=== PATIENT | female | born 1955 | race Caucasian/White ===

== ENCOUNTER 2022-07-23 10:45 | Outpatient (CLI) | payer MEDICARE, SELFPAY ==
[2022-07-23 11:23] LABS: Hematocrit 48.9 % (37.0-47.0); Hemoglobin 15.8 g/dL (12.0-15.0); Mean Corpuscular HGB Conc 32.3 g/dl (32-36); Mean Corpuscular Hemoglobin 28.5 pg (26-34); Mean Corpuscular Volume 88.1 fl (80-100); Mean Platelet Volume 10.5 fl (7.4-10.4); Platelet Count Result 261 k/mm3 (150-375); Red Blood Count 5.55 M/mm3 (4.2-5.4); Red Cell Distribution Width 13.4 % (11.5-14.5)
[2022-07-23 11:34] LABS: Alanine Aminotransferase 22 U/L (6-35); Albumin Level 4.7 g/dL (3.5-5.1); Alkaline Phosphatase 50 U/L (38-126); Anion Gap 7 mmol/L (8-16); Aspartate Amino Transferase 27 U/L (14-36); Blood Urea Nitrogen 23 mg/dL (7-17); Calcium 9.2 mg/dL (8.4-10.2); Carbon Dioxide 29 mmol/L (22-30); Chloride 103 mmol/L (98-107); Cholesterol 119 mg/dL (0-200); Estimated Glomerular Filt Rate > 60; Glucose 97 mg/dL (65-110); HDL Direct 54 mg/dL; Potassium 4.6 mmol/L (3.4-5.0); Sodium 139 mmol/L (137-145); Triglycerides 79 mg/dL (<150)
[2022-07-23 11:35] LABS: Bacteria Urine None Seen /hpf; Non Pathogenic Casts 0-2; RBC Urine 0-2 /hpf (0-2); Squamous Epithelial Cell Urine Occasional /hpf (Few); WBC Urine 0-5 /hpf (0-3)
[2022-07-23 11:51] LABS: Appearance Urine Clear (Clear); Bilirubin Urine Negative (Negative); Blood Urine Negative (Negative); Color Urine Yellow (Yellow); Glucose Urine UA Negative (Negative); Ketones Urine Negative (Negative); Leukocyte Esterase Ur Negative LEU/UL (NEGATIVE); Nitrate Urine Negative (Negative); Protein Urine Negative (Negative); Specific Grav Ur 1.021 (1.001-1.035); Urobilinogen Urine 0.2 mg/dL (<2.0)
[2022-07-23 11:58] LABS: Add Urine Microscopic? NO
[2022-07-23 12:14] LABS: Thyroid Stimulating Hormone 0.765 uIU/mL (0.465-4.680)
[2022-07-23 13:35] LABS: LDL Cholesterol Direct 50 mg/dL
== END 2022-07-23 10:46 | disposition home or self-care (01) ==
PROVIDERS: PCP Family Medicine; Visit Provider Family Medicine
DX: E78.5 Hyperlipidemia, unspecified (principal); I10 Essential (primary) hypertension; I25.10 Atherosclerotic heart disease of native coronary artery without angina pectoris; R73.01 Impaired fasting glucose
CPT/HCPCS: 36415; 80053; 80061; 81003; 84443; 85027

== ENCOUNTER 2022-08-28 12:15 | Outpatient (CLI) | payer MEDICARE, SELFPAY ==
[2022-08-28 13:16] LABS: Basophils Absolute Auto 0.1 K/mm3 (0.0-0.1); Basophils Percent Auto 1.1 % (0.2-1.2); Eosinophils Absolute Auto 0.2 K/mm3 (0-0.3); Eosinophils Percent Auto 3.8 % (0-4.4); Hematocrit 46.8 % (37.0-47.0); Hemoglobin 14.8 g/dL (12.0-15.0); Immature Granulocyte Absolute 0.01 K/mm3 (0.00-0.031); Immature Granulocyte Percent A 0.2 % (0-0.5); Lymphocytes Absolute Auto 1.42 K/mm3 (0.9-3.2); Lymphocytes Percent Auto 22.3 % (18.3-44.2); Mean Corpuscular HGB Conc 31.6 g/dl (32-36); Mean Corpuscular Hemoglobin 28.2 pg (26-34); Mean Corpuscular Volume 89.3 fl (80-100); Mean Platelet Volume 10.8 fl (7.4-10.4); Monocytes Absolute Auto 0.5 K/mm3 (0.1-0.6); Monocytes Percent Auto 7.2 % (2.6-8.5); Neutrophils Absolute Auto 4.2 K/mm3 (1.3-6.7); Neutrophils Percent Auto 65.4 % (45.5-73.1); Platelet Count Result 217 k/mm3 (150-375); Red Blood Count 5.24 M/mm3 (4.2-5.4); Red Cell Distribution Width 13.4 % (11.5-14.5); White Blood Count 6.4 K/mm3 (4.5-10.0)
== END 2022-08-28 12:16 | disposition home or self-care (01) ==
LOC: ANHLAB 12:17
PROVIDERS: PCP Family Medicine; Visit Provider Family Medicine
DX: R71.8 Other abnormality of red blood cells (principal)
CPT/HCPCS: 36415; 85025

== ENCOUNTER 2023-07-29 10:21 | Outpatient (CLI) | payer MEDICARE, SELFPAY ==
[2023-07-29 13:19] LABS: Hematocrit 49.4 % (37.0-47.0); Hemoglobin 15.8 g/dL (12.0-15.0); Mean Corpuscular Hemoglobin 28.8 pg (26-34); Mean Platelet Volume 11.2 fl (7.4-10.4); Platelet Count Result 231 k/mm3 (150-375); Red Blood Count 5.49 M/mm3 (4.2-5.4); Red Cell Distribution Width 13.9 % (11.5-14.5); White Blood Count 5.8 K/mm3 (4.5-10.0)
[2023-07-29 13:24] LABS: Appearance Urine Clear (Clear); Bilirubin Urine Negative (Negative); Blood Urine Negative (Negative); Color Urine Yellow (Yellow); Glucose Urine UA Negative (Negative); Ketones Urine Negative (Negative); Leukocyte Esterase Ur Negative LEU/UL (Negative); Nitrate Urine Negative (Negative); Protein Urine Negative (Negative); Specific Grav Ur 1.024 (1.001-1.035); Urobilinogen Urine 0.2 mg/dL (<2.0); pH Urine 5.5 (5.0-9.0)
[2023-07-29 13:33] LABS: Add Urine Microscopic? NO
[2023-07-29 13:42] LABS: LDL Cholesterol Direct 62 mg/dL
[2023-07-29 14:11] LABS: Alanine Aminotransferase 17 U/L (6-35); Albumin Level 4.5 g/dL (3.5-5.1); Alkaline Phosphatase 63 U/L (38-126); Anion Gap 7 mmol/L (4-12); Aspartate Amino Transferase 24 U/L (14-36); Blood Urea Nitrogen 18 mg/dL (7-17); Calcium 8.9 mg/dL (8.4-10.2); Carbon Dioxide 27 mmol/L (22-30); Chloride 105 mmol/L (98-107); Cholesterol 119 mg/dL (0-200); Estimated Glomerular Filt Rate > 60; Glucose 87 mg/dL (65-110); HDL Direct 49 mg/dL; Potassium 4.5 mmol/L (3.4-5.0); Sodium 139 mmol/L (137-145); Triglycerides 80 mg/dL (<150)
== END 2023-07-29 10:22 | disposition home or self-care (01) ==
PROVIDERS: PCP Family Medicine; Referring Provider Hospitalist; Visit Provider Family Medicine
DX: I11.9 Hypertensive heart disease without heart failure (principal); E78.5 Hyperlipidemia, unspecified; I25.10 Atherosclerotic heart disease of native coronary artery without angina pectoris; Z00.00 Encounter for general adult medical examination without abnormal findings; Z68.28 Body mass index [BMI] 28.0-28.9, adult
CPT/HCPCS: 36415; 80053; 80061; 81003; 84443; 85027

== ENCOUNTER 2023-12-10 15:33 | Outpatient (NON) | payer MEDICARE, SELFPAY | END 2023-12-10 15:34 | disposition home or self-care (01) | LOC: ANHLAB 15:37 | PROVIDERS: PCP Family Medicine; Visit Provider Family Medicine | DX: B89 Unspecified parasitic disease (principal) | CPT/HCPCS: 88300; 88304 ==

== ENCOUNTER 2023-12-11 10:51 | Outpatient (CLI) | payer MEDICARE, SELFPAY ==
[2023-12-11 11:07] LABS: Basophils Absolute Auto 0.1 K/mm3 (0.0-0.1); Basophils Percent Auto 0.7 % (0.2-1.2); Eosinophils Absolute Auto 0.4 K/mm3 (0-0.3); Eosinophils Percent Auto 5.4 % (0-4.4); Hematocrit 44.8 % (37.0-47.0); Hemoglobin 14.5 g/dL (12.0-15.0); Immature Granulocyte Absolute 0.03 K/mm3 (0.00-0.031); Immature Granulocyte Percent A 0.4 % (0-0.5); Lymphocytes Absolute Auto 1.38 K/mm3 (0.9-3.2); Lymphocytes Percent Auto 20.1 % (18.3-44.2); Mean Corpuscular HGB Conc 32.4 g/dl (32-36); Mean Corpuscular Hemoglobin 28.9 pg (26-34); Mean Corpuscular Volume 89.4 fl (80-100); Mean Platelet Volume 10.7 fl (7.4-10.4); Monocytes Absolute Auto 0.5 K/mm3 (0.1-0.6); Monocytes Percent Auto 7.4 % (2.6-8.5); Neutrophils Absolute Auto 4.5 K/mm3 (1.3-6.7); Platelet Count Result 239 k/mm3 (150-375); Red Blood Count 5.01 M/mm3 (4.2-5.4); Red Cell Distribution Width 14.3 % (11.5-14.5); White Blood Count 6.9 K/mm3 (4.5-10.0)
[2023-12-11 11:30] LABS: Add Urine Microscopic? NO; Appearance Urine Clear (Clear); Bilirubin Urine Negative (Negative); Blood Urine Negative (Negative); Color Urine Yellow (Yellow); Glucose Urine UA Negative (Negative); Ketones Urine Negative (Negative); Leukocyte Esterase Ur Negative LEU/UL (Negative); Nitrate Urine Negative (Negative); Protein Urine Negative (Negative); Specific Grav Ur 1.006 (1.001-1.035); Urobilinogen Urine 0.2 mg/dL (<2.0)
== END 2023-12-11 10:52 | disposition home or self-care (01) ==
PROVIDERS: PCP Family Medicine; Visit Provider Student in an Organized Health Care Education/Training Program
DX: R82.90 Unspecified abnormal findings in urine (principal)
CPT/HCPCS: 36415; 81003; 85025

== ENCOUNTER 2024-01-26 08:40 | Outpatient (CLI) | payer MEDICARE, SELFPAY ==
--- NOTE | ~2024-01-26 | DEXA_ITS ---
Bone Density Report Name: TRACEY GATICA Age: 69 Sex: Female Ethnicity: White Date of : 1955 Indication: postmenopausal; screening for osteoporosis; history of glucocorticoids; asthma or emphysema; hysterectomy; rheumatoid arthritis; Referring Provider: TEJAL FORD Study: Bone densitometry was performed. Exam Date: January 26, 2024 Accession number: [id number] Bone Density: Region BMD T-score Z-score Classification AP Spine(L1-L4) 1.077 0.3 2.4 Normal Femoral Neck (Left) 0.716 -1.2 0.6 Osteopenia Total Hip (Left) 1.095 1.3 2.8 Normal Femoral Neck (Right) 0.752 -0.9 0.9 Normal Total Hip (Right) 1.121 1.5 3.0 Normal Total Hip Mean 1.108 1.4 2.9 Normal World Health Organization criteria for BMD impression classify patients as: Normal (T-score at or above -1.0), Osteopenia (T-score between -1.0 and -2.5), or Osteoporosis (T-score at or below -2.5). 10-year Fracture Risk(1): Major Osteoporotic Fracture 18% Hip Fracture 2.6% Reported Risk Factors: [place] (), Neck BMD=0.716, BMI=30.5, glucocorticoids, rheumatoid arthritis (1) FRAX(R) Version 3.08. Fracture probability calculated for an untreated patient. Fracture probability may be lower if the patient has received treatment. Clinical Information Provided by Patient: Has taken Glucocorticoids Has rheumatoid arthritis Has the following medical conditions: Asthma or Emphysema, Hysterectomy Patient maximum height was 63 Menopause Age: 39 No regular weight bearing exercise Does not regularly consume dairy products Onset of menses at age 11 Number of children 1 Missed period for more than 6 months in a row Impression: The patient has low bone mass, based on the Left Femoral Neck T-score. The patient has an estimated ten-year risk of hip fracture of 2.6% and an estimated ten-year risk of major fracture of 18%, based on the WHO FRAX algorithm. The patient has risk factors, including: history of glucocorticoid therapy. Discussion: BONE DENSITY IS LOW AT ONE OR MORE SKELETAL SITES. This patient's lowest T-score is low at one or more skeletal sites. It meets the World Health Organization's (WHO) criteria for ?low bone mass? (T-score between -1.0 and -2.5). The patient's 10-year risk of fracture as calculated by FRAX is less than the threshold where pharmacological therapy is recommended by the National Osteoporosis Foundation (NOF). However, all treatment decisions require clinical judgment and consideration of individual patient factors, including patient preferences, comorbidities, previous drug use, risk factors not captured in the FRAX model (e.g., frailty, falls, vitamin D deficiency, increased bone turnover, interval significant decline in bone density) and possible under or overestimation of fracture risk by FRAX. The patient should follow a healthful lifestyle (good nutrition with adequate calcium and vitamin D, and appropriate weight-bearing exercise). Follow-Up: Consider repeating this study in 2 to 3 years to reassess this patient's status, or sooner if there is some new clinical indication. Reported by: AIDA on 01/26/2024 9:24:00 AM. Reviewed, dictated and finalized at location ANini SAUER
== END 2024-01-26 08:41 | disposition home or self-care (01) ==
PROVIDERS: PCP Family Medicine; Visit Provider Family Medicine
DX: Z78.0 Asymptomatic menopausal state (principal); M85.852 Other specified disorders of bone density and structure, left thigh
CPT/HCPCS: 77080

== ENCOUNTER 2024-04-05 09:56 | Outpatient (CLI) | payer MEDICARE, SELFPAY ==
[2024-04-05 12:35] LABS: Alanine Aminotransferase 16 U/L (6-35); Alkaline Phosphatase 50 U/L (38-126); Anion Gap 9 mmol/L (4-12); Aspartate Amino Transferase 26 U/L (14-36); Bilirubin,Total 0.6 mg/dL (0.2-1.3); Blood Urea Nitrogen 30 mg/dL (7-17); Calcium 8.9 mg/dL (8.4-10.2); Carbon Dioxide 28 mmol/L (22-30); Chloride 102 mmol/L (98-107); Estimated Glomerular Filt Rate > 60; Glucose 97 mg/dL (65-110); Potassium 4.6 mmol/L (3.4-5.0); Sodium 139 mmol/L (137-145)
--- OUTSIDE RECORDS SUMMARY | 2024-04-07 17:09 | XMS_ITS | Encounter Summary ---
Author Organization [facility] Address [address] [place] [address]. [place] [address] [place] [address] Care Team Providers Care Nuclear Physicist Name Role Phone Mulu Neil MD Primary Care Provider [phone] Tara Chin MD Unavailable Darren Richardson MD Unavailable [phone] Morris Barajas MD Primary Care Provider [phone] Encounter Details Date Type Department Care Team (Late Contact Info) Description 05/30/2017 Abstract [facility] [address] [place] [address] , Dallin Bean MD Social History Tobacco Use Types Packs/Day Years Used Date Smoking Tobacco: Never Smokeless Tobacco: Never Alcohol Use Standard Drinks/Week Comments No 0 (1 standard drink = 0.6 oz pur e alcohol) Comments Unknown Sex and Gender Information Value Date Recorded Sex Assigned at Female 03/29/2024 10:17 AM JAVA XML DEVELOPER Legal Sex Female 3:39 AM CDT Gender Identity Not on file Sexual Orientation Not on file Occupation Industry Job Start Date Job End Date Retired Not on file Not on file Not on file documented as of this encounter Plan of Treatment Upcoming Encounters Date Type Department Care Team (Late Contact Info) Description 09/27/2024 10:30 AM CDT Office Visit [facility], [facility] [address] [place], [place] [id number] Darren Richardson MD [facility]. [facility] [address] [place] [address] documented as of this encounter Goals Goal Patient Goal Type Associated Problems Recent Progress Patient-Stated? Author Reduce calorie intake to 2000 calories per day Diet No Piero Chen RN documented as of this encounter Visit Diagnoses Not on filedocumented in this encounter Care Teams Nuclear Physicist Relationship Specialty Start Date End Date Mulu Neil MD [address] [place], [place] [address] PCP - General FAMILY PRACTICE 11/07/15 03/15/18 Morris Barajas MD [address] [place] [address] PCP - General FAMILY PRACTICE 03/16/18 Tara Chin MD [address] [place] [address] [place] Braille Typist CARDIOVASCULAR DISEASE 07/08/17 03/15/18 Darren Richardson MD [facility]. [address] [address] [place] Braille Typist CARDIOVASCULAR DISEASE 11/12/17 documented as of this encounter
--- OUTSIDE RECORDS SUMMARY | 2024-04-07 17:09 | XMS_ITS | Encounter Summary ---
Author Organization [facility] Address [address] [place] [address]. [place] [address] [place] [address] Care Team Providers Care Production Superintendent Hydro Name Role Phone Mulu Neil MD Primary Care Provider [phone] Tara Chin MD Unavailable Darren Richardson MD Unavailable [phone] Morris Barajas MD Primary Care Provider [phone] Encounter Details Date Type Department Care Team (Late st Contact Info) Description 12/03/2017 Abstract [facility] at [address] [address] Harvey Rawls MA Social History Tobacco Use Types Packs/Day Years Used Date Smoking Tobacco: Never Smokeless Tobacco: Never Alcohol Use Standard Drinks/Week Comments No 0 (1 standard drink = 0.6 oz pur e alcohol) Comments Unknown Sex and Gender Information Value Date Recorded Sex Assigned at Female 03/29/2024 10:17 AM FINAL ASSEMBLY AND PACKING SUPERVISOR Legal Sex Female 3:39 AM CDT Gender Identity Not on file Sexual Orientation Not on file Occupation Industry Job Start Date Job End Date Not on file Not on file Not on file Not on file documented as of this encounter Progress Notes * DARIN Villarreal - 12/03/2017 8:29 AM CDT PG pt send letter continue current medications documented in this encounter Plan of Treatment Upcoming Encounters Date Type Department Care Team (Late st Contact Info) Description 09/27/2024 10:30 AM CDT Office Visit [facility], [place] [address] [place] [address] Darren Richardson MD [facility]. [facility] [address] [place], [place] [id number] documented as of this encounter Goals Goal Patient Goal Type Associated Problems Recent Progress Patient-Stated? Author Reduce calorie intake to 2000 calories per day Diet No Piero Chen RN documented as of this encounter Procedures Procedure Name Priority Date/Time Associated Diagnosis Comments COMPREHENSIVE METABOLIC PANEL Routine 07/29/2023 LIPID PANEL Routine 07/29/2023 CBC, MANUAL DIFF Routine 07/29/2023 THYROID STIM HORMONE TSH Routine 07/29/2023 HEPATIC FUNCTION PANEL Routine 12/01/2017 documented in this encounter Results * COMPREHENSIVE METABOLIC PANEL (07/29/2023) SODIUM S/P/B 139 GLUCOSE 87 mg/dL AST 24 BUN 18 CREATININE S/P/B 0.70 0.5 - 1.0 CALCIUM S/P/B 8.9 POTASSIUM S/P/B 4.5 CHLORIDE S/P/B 105 ALT 17 GFR ESTIMATE >60 us Default History Genericprovider LABORATORY Edited Result - Final * LIPID PANEL (07/29/2023) CHOLESTEROL 119 TRIGLYCERIDES 80 HDL 49 DIRECT LDL 62 us Default History Genericprovider LABORATORY Edited Result - Final * CBC, MANUAL DIFF (07/29/2023) WBC 5.8 HGB 15.8 HCT 49.4 PLT 231 us Default History Genericprovider LABORATORY Edited Result - Final * THYROID STIM HORMONE TSH (07/29/2023) TSH 1.130 us Default History Genericprovider LABORATORY Edited Result - Final * HEPATIC FUNCTION PANEL (12/01/2017) ALBUMIN S/P/B 4.4 3.5 - 5.0 ALKALINE PHOSPHATASE S/P/B 73 ALT 11 AST 15 BILIRUBIN DIRECT S/P/B <0.2 BILIRUBIN TOTAL S/P/B 0.4 TOTAL PROTEIN S/P/B 7.1 12/01/2017 us Doc [facility] Abstract LABORATORY Final Result documented in this encounter Visit Diagnoses Not on filedocumented in this encounter Care Teams Production Superintendent Hydro Relationship Specialty Start Date End Date Mulu Neil MD [address] [place] [address] PCP - General FAMILY PRACTICE 11/07/15 03/15/18 Morris Barajas MD [address] [place] [address] PCP - General FAMILY PRACTICE 03/16/18 Tara Chin MD [address] [place] [address] [place] Smoke Jumper Supervisor CARDIOVASCULAR DISEASE 07/08/17 03/15/18 [facility] [address] [address] [place] Smoke Jumper Supervisor CARDIOVASCULAR DISEASE 11/12/17 documented as of this encounter
--- OUTSIDE RECORDS SUMMARY | 2024-04-07 17:09 | XMS_ITS | Encounter Summary ---
Author Organization [facility] Address [address] [place] [address]. [place] [address] [place] [address] Care Team Providers Care Hot Strip Finisher Name Role Phone Mulu Neil MD Primary Care Provider [phone] Tara Chin MD Unavailable Darren Richardson MD Unavailable [phone] Morris Barajas MD Primary Care Provider [phone] Encounter Details Date Type Department Care Team (Late Contact Info) Description 02/26/2015 Abstract [facility] THREE [facility] [address] [place] [address] Kirill Oquendo MD Social History Tobacco Use Types Packs/Day Years Used Date Smoking Tobacco: Never Alcohol Use Standard Drinks/Week Comments No 0 (1 standard drink = 0.6 oz pur e alcohol) Comments Unknown Sex and Gender Information Value Date Recorded Sex Assigned at Female 03/29/2024 10:17 AM DESTINATION COORDINATOR Legal Sex Female 3:39 AM CDT Gender Identity Not on file Sexual Orientation Not on file Occupation Industry Job Start Date Job End Date Retired Not on file Not on file Not on file documented as of this encounter Plan of Treatment Upcoming Encounters Date Type Department Care Team (Late Contact Info) Description 09/27/2024 10:30 AM CDT Office Visit [facility], [facility] [address] [place], [place] [address] Darren Richardson MD [facility]. [facility] [address] [place] [address] documented as of this encounter Visit Diagnoses Not on filedocumented in this encounter Care Teams Hot Strip Finisher Relationship Specialty Start Date End Date Mulu Neil MD [address] [place] [address] PCP - General FAMILY PRACTICE 11/07/15 03/15/18 Morris Barajas MD [address] [place] [address] PCP - General FAMILY PRACTICE 03/16/18 Tara Chin MD [address] [place] [address] [place] Projects Manager CARDIOVASCULAR DISEASE 07/08/17 03/15/18 Darren Richardson MD [address] [facility] [address] [place] [address] Mark Projects Manager CARDIOVASCULAR DISEASE 11/12/17 documented as of this encounter
--- OUTSIDE RECORDS SUMMARY | 2024-04-07 17:09 | XMS_ITS | Clinical Summary ---
Author Organization [facility] Address [address] [place] [address]. [place] [address] [place] [address] Care Team Providers Care Sap Trainer Name Role Phone Darren Richardson MD Unavailable Morris Barajas MD Primary Care Provider [phone] Allergies Active Allergy Reactions Criticality Noted Date Comments Amiodarone Shortness of Breath High 11/06/2015 Cephalexin GI Upset 11/06/2015 Tramadol Nausea and Vomiting 11/06/2015 Medications aspirin 81 MG chewable tablet Chew 1 tablet (81 mg total) by mouth daily. 6 Active estradiol (ESTRACE) 0.1 MG/GM vaginal cream Place 1 g vaginally daily. 3 Active atorvastatin (LIPITOR) 10 MG tablet Take 1 tablet (10 mg total) by mouth daily. 90 tablet 1 5 Active carvedilol (COREG) 6.25 MG tabletIndicatio ns:Coronary artery disease involving [place] coronary artery of [place] heart without angina pectoris,[place] ry artery disease involving [place] coronary artery of [place] heart with angina pectoris (CMS/HCC),Essen tial (primary) hypertension,SO B (shortness of breath) Take 1 tablet (6.25 mg total) by mouth 2 (two) times daily. 180 tablet 1 5 Active clopidogrel (PLAVIX) 75 MG tabletIndicatio ns:Coronary artery disease involving [place] coronary artery of [place] heart with angina pectoris (CMS/HCC) Take 1 tablet (75 mg total) by mouth daily. 90 tablet 1 5 Active furosemide (LASIX) 20 MG tablet Take 1 tablet (20 mg total) by mouth daily. 90 tablet 1 5 Active losartan (COZAAR) 25 MG tablet Take 1 tablet (25 mg total) by mouth 2 (two) times daily. 180 tablet 1 5 Active furosemide (LASIX) 20 MG tablet Take 1 tablet by mouth once daily 90 tablet 4 03/29/19 25 Discontinu ed(Reorder ) losartan (COZAAR) 25 MG tablet Take 1 tablet by mouth twice daily 180 tablet 4 03/29/19 25 Discontinu ed(Reorder ) atorvastatin (LIPITOR) 10 MG tablet Take 1 tablet by mouth once daily 90 tablet 4 03/29/19 25 Discontinu ed(Reorder ) clopidogrel (PLAVIX) 75 MG tabletIndicatio ns:Coronary artery disease involving [place] coronary artery of [place] heart with angina pectoris (CMS/HCC) Take 1 tablet by mouth once daily 90 tablet 4 03/29/19 25 Discontinu ed(Reorder ) carvedilol (COREG) 6.25 MG tabletIndicatio ns:Coronary artery disease involving [place] coronary artery of [place] heart with angina pectoris (CMS/HCC),Coron [place]on artery disease involving [place] coronary artery of [place] heart without angina pectoris,Essent ial (primary) hypertension,SO B (shortness of breath) Take 1 tablet by mouth twice daily 180 tablet 4 03/29/19 25 Discontinu ed(Reorder ) Active Problems Problem Noted Date Diagnosed Date Dizziness 11/06/2015 Glaucoma Hyperlipidemia Hypertension Coronary artery disease invo lving [place] coronary artery of [place] heart without angina pectoris Family history of cardiovascular disease Encounters Date Type Department Care Team Description 03/29/2024 10:30 AM FREIGHT TRUCKER Office Visit [facility], [address] [address] Dawna Lovelace, SUPERVISOR MONEY ROOM Coronary Artery Disease; Follow Up; Chest Pain; Shortness Of Breath 03/29/2024 Travel from Last 3 Months Immunizations Name Administration Dates Next Due Influenza (Generic) 12/21/2015,01/04/2014,2012 Influenza Adult (Generic) 12/25/2022,12/31/2016, 12/28/2014 Pneumococcal (Pneumovax 23) 12/28/2014 Pneumococcal (Prevnar 13) 01/30/2016 Shingrix 10/17/2018,08/13/2018 Td (TDVAX) 01/07/2005 Tdap (Generic) 08/13/2018 Family History Medical History Relation Comments Coronary artery disease Father Heart Attack Father Coronary artery disease Mother Heart Attack Mother Coronary artery disease Other Family h istory is positive for coronary artery disease Coronary artery disease Son Heart Attack Son Relation Status Comments Father Mother Other Other Son Social History Tobacco Use Types Packs/Day Years Used Date Smoking Tobacco: Never Smokeless Tobacco: Never Tobacco Cessation:Counseling Given: Not Answered Alcohol Use Standard Drinks/Week Comments No 0 (1 standard drink = 0.6 oz pur e alcohol) Comments No Sex and Gender Information Value Date Recorded Sex Assigned at Female 03/29/2024 10:17 AM FREIGHT TRUCKER Legal Sex Female 3:39 AM CDT Gender Identity Not on file Sexual Orientation Not on file Occupation Industry Job Start Date Job End Date Not on file Not on file Not on file Not on file Last Filed Vital Signs Vital Sign Reading Time Taken Comments Blood Pressure 120/70 03/29/2024 10:36 AM FREIGHT TRUCKER Pulse 73 03/29/2024 10:36 AM FREIGHT TRUCKER Temperature - - Respiratory Rate 18 07/08/2017 12:51 PM CDT Oxygen Saturation 96% 03/29/2024 10:36 AM FREIGHT TRUCKER Inhaled Oxygen Concentration - - Weight 80.3 kg (177 lb) 03/29/2024 10:36 AM FREIGHT TRUCKER Height 160 cm (5' 3 ) 03/29/2024 10:36 AM FREIGHT TRUCKER Body Mass Index 31.35 03/29/2024 10:36 AM FREIGHT TRUCKER Plan of Treatment Upcoming Encounters Date Type Department Care Team (Late st Contact Info) Description 09/27/2024 10:30 AM CDT Office Visit [facility], [address] [id number] Darren Richardson MD Three [facility]. [place] [address] [place], [place] [id number] Health Maintenance Due Date Last Done Comments PHQ-2 (Physician [place]) 1966 Hepatitis C 01/23/1972 Mammogram Screening 1994 RSV Immunization or 60+ Years (1 - Risk 60-74 years 1-dose series) 2014 Annual Medicare Wellness Visit 2019 Dexa Scan (General) 2019 Pneumococcal Vaccine: 65+ Years (3 of 3 - PPSV23 or PCV20) 12/29/2019 01/30/2016, 12/28/2014 COVID-19 Vaccine (2 - 2023- season) 2023 12/25/2022 Influenza Adult (#1) 2023 12/25/2022, 12/31/2016, 12/21/2015, Additional history exists Colorectal Cancer Screening Colonoscopy (10 Years) 11/05/2024 Postponed from 1955 (Patient will follow up with PCP) DTaP, Tdap and Td Vaccines (2 - Td or Tdap) 08/13/2028 08/13/2018, 01/07/2005 Zoster Vaccines Completed 10/17/2018, 08/13/2018 Meningococcal B Vaccine Aged Out No l onger eligible based on patient's age to complete this topic Meningococcal Vaccine Aged Out No hiro satish eligible based on patient's age to complete this topic RSV Immunizations Under 20 Months Aged Out No longer eligible based on patient's age to complete this topic Goals Goal Patient Goal Type Associated Problems Recent Progress Patient-Stated? Author Reduce calorie intake to 2000 calories per day Diet No Piero Chen, RN Insurance [employer] Advance Directives Documents on File Type Date Recorded Patient Parimutuel Cashier Expl anation Advance Directives and Livin g Will 05/30/2017 ADVANCE DIRECTIVE Advance Directives and Livin g Will 11/06/2015 ADVANCE DIRECTIVE Advance Directives and Livin g Will 02/26/2015 ADVANCE DIRECTIVE Advance Directives and Livin g Will 02/06/2015 ADVANCE DIRECTIVE Advance Directives and Livin g Will 01/30/2015 ADVANCE DIRECTIVE Advance Directives and Livin g Will 01/30/2015 ADVANCE DIRECTIVE Advance Directives and Livin g Will 12/21/2014 ADVANCE DIRECTIVE Care Teams Sap Trainer Relationship Specialty Start Date End Date Morris Barajas MD [address] [place] [address] PCP - General FAMILY PRACTICE 03/16/18 Darren Richardson MD [facility]. [address] [address] [place] Penetration Tester CARDIOVASCULAR DISEASE 11/12/17
--- OUTSIDE RECORDS SUMMARY | 2024-04-07 17:09 | XMS_ITS | Encounter Summary ---
Author Organization [facility] Address [address] [place] [address]. [place] [address] [place] [address] Care Team Providers Care All Terrain Vehicle Racer Name Role Phone Mulu Neil MD Primary Care Provider [phone] Tara Chin MD Unavailable Darren Richardson MD Unavailable [phone] Morris Barajas MD Primary Care Provider [phone] Encounter Details Date Type Department Care Team (Late st Contact Info) Description 10/26/[address] [facility] [address] [place] [address] , Generic Conversion, Social History Tobacco Use Types Packs/Day Years Used Date Smoking Tobacco: Never Comments Unknown Sex and Gender Information Value Date Recorded Sex Assigned at Female 03/29/2024 10:17 AM CORPORATE TRAVEL CONSULTANT Legal Sex Female 3:39 AM CDT Gender Identity Not on file Sexual Orientation Not on file documented as of this encounter Plan of Treatment Upcoming Encounters Date Type Department Care Team (Late st Contact Info) Description 09/27/2024 10:30 AM CDT Office Visit [facility], [facility] [address] [place], [place] [id number] Darren Richardson MD Three [facility]. [facility] [address] [place], [place] [phone] documented as of this encounter Visit Diagnoses Not on filedocumented in this encounter Care Teams All Terrain Vehicle Racer Relationship Specialty Start Date End Date Mulu Neil MD [address] [place] [address] PCP - General FAMILY PRACTICE 11/07/15 03/15/18 Morris Barajas MD [address] [place] [address] PCP - General FAMILY PRACTICE 03/16/18 Tara Chin MD [address] [place] [address] [place] Juice Standardizer CARDIOVASCULAR DISEASE 07/08/17 03/15/18 Darren Richardson MD Three [facility]. [address] [address] [place] Juice Standardizer CARDIOVASCULAR DISEASE 11/12/17 documented as of this encounter
== END 2024-04-05 09:57 | disposition home or self-care (01) ==
PROVIDERS: PCP Family Medicine; Visit Provider Family Medicine
DX: I11.9 Hypertensive heart disease without heart failure (principal)
CPT/HCPCS: 36415; 80053